=== PATIENT | male | born 1955 | race Native Hawaiian/Other Pacific Islander ===

== ENCOUNTER 2022-01-08 19:53 | Observation (INO) | payer OTHER ==
[~2022-01-08] VITALS: Ht 180.3 cm; Wt 81.6 kg
--- NOTE | ~2022-01-08 | EKG ---
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
[2022-01-08 20:02] VITALS: BP 99/53
[2022-01-08 21:17] LABS: ABSOLUTE LYMPHOCYTES 0.2 thou/uL (0.8-5.3); ABSOLUTE NEUTROPHILS 8.7 thou/uL (1.6-8.1); BASOPHILS 0.1 %; EOSINOPHILS 0.1 %; LYMPHOCYTES 2.1 %; MCH 25.8 pg (26.0-34.0); MCHC 31.7 g/dL (28.0-37.0); MCV 81.3 fL (80.0-100.0); MONOCYTES 18.1 %; MPV 7.6 fl. (7.2-11.1); NUCLEATED RBCS 0 /100WBC; PLATELET COUNT* 319 thou/uL (150-400); POLYS 79.6 %; RBC 2.34 mil/uL (4.50-6.00); RDW-CV 24.2 % (10.5-14.5); WBC 10.9 thou/uL (4.0-11.0)
[2022-01-08 21:22] LABS: CALCIUM 8.1 mg/dL (8.5-10.1); CREATININE 1.6 mg/dL (0.6-1.3); POTASSIUM 4.2 mmol/L (3.5-5.1)
[2022-01-08 21:26] LABS: HEMATOCRIT 19.1 % (42.0-52.0)
[2022-01-08 21:31] LABS: INR 1.1; PROTIME 11.5 Seconds (9.20-11.50)
[2022-01-08 21:32] LABS: TOTAL BILIRUBIN 0.8 mg/dL (<0.1-1.0); TOTAL PROTEIN 7.1 g/dL (6.4-8.2)
[2022-01-08 22:03] LABS: ANISOCYTOSIS 2+; HYPOCHROMASIA 1+; PLATELET ESTIMATE ADEQUATE
[2022-01-08 22:04] LABS: MACROCYTES Occasional; MICROCYTES Occasional
[2022-01-09 04:25] VITALS: BP 104/58
[2022-01-09 07:15] LABS: URINE BILIRUBIN NEGATIVE (Negative); URINE BLOOD TRACE (Negative); URINE CLARITY CLEAR; URINE COLOR YELLOW; URINE GLUCOSE-RANDOM NEGATIVE (Negative); URINE KETONES NEGATIVE (Negative); URINE LEUKOCYTES-REFLEX NEGATIVE (Negative); URINE NITRITE-REFLEX NEGATIVE (Negative); URINE PROTEIN NEGATIVE (Negative); URINE UROBILINOGEN 0.2 E.U./dl (0.2-1.0)
--- NOTE | 2022-01-09 08:40 | NUR ---
CALLED PT'S DAUGHTER BACK AND GAVE UP DATE OF PT'S CONDITION PER PT'S CONSENT. DAUGHTER EMANUEL [phone].
[2022-01-09 08:48] VITALS: BP 96/57
--- NOTE | 2022-01-09 09:15 | EKG ---
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
[2022-01-09 09:21] LABS: ABSOLUTE LYMPHOCYTES 1.1 thou/uL (0.8-5.3); ABSOLUTE MONOCYTES 1.3 thou/uL (0.0-1.2); ABSOLUTE NEUTROPHILS 8.8 thou/uL (1.6-8.1); BASOPHILS 0.3 %; EOSINOPHILS 0.3 %; HEMATOCRIT 26.2 % (42.0-52.0); LYMPHOCYTES 9.5 %; MCH 25.9 pg (26.0-34.0); MCHC 31.5 g/dL (28.0-37.0); MCV 82.2 fL (80.0-100.0); MONOCYTES 11.7 %; MPV 7.5 fl. (7.2-11.1); NUCLEATED RBCS 0 /100WBC; PLATELET COUNT* 295 thou/uL (150-400); POLYS 78.2 %; RBC 3.19 mil/uL (4.50-6.00); RDW-CV 22.6 % (10.5-14.5); WBC 11.2 thou/uL (4.0-11.0)
[2022-01-09 09:27] LABS: HEMOGLOBIN 8.3 gm/dL (14.0-18.0)
[2022-01-09 09:40] LABS: ANION GAP 10 mmol/L (7-16); BUN 19 mg/dL (7-18); CHLORIDE 97 mmol/L (98-107); CHOLESTEROL 93 mg/dL (<200); CO2 23 mmol/L (21-32); CREATININE 1.2 mg/dL (0.6-1.3); GLUCOSE 149 mg/dL (70-99); HDL CHOLESTEROL 41 mg/dL (>40); LDL CHOLESTEROL 42 mg/dL (<100); SERUM ASSESSMENT CLEAR; SODIUM 130 mmol/L (136-145); TC:HDL 2.3 Ratio (Not establshd); TRIGLYCERIDE 51 mg/dL (<150); VLDL 10 mg/dL (<40)
[2022-01-09 10:04] VITALS: BP 96/57
[2022-01-09 10:14] LABS: % SATURATION 4 % (20-39); IRON 11 ug/dL (50-175)
[2022-01-09 11:30] VITALS: BP 104/67
[2022-01-09] MEDS ORDERED: XARELTO20 MG PO (13:13)
[2022-01-09] MEDS ORDERED: PROTONIX40 M2 PO ×2 (13:14→13:37)
[2022-01-09] MEDS ORDERED: ONDANSETRON HCL4 M2 PO (13:16)
[2022-01-09] MEDS ORDERED: REMERON15 M2 PO (13:18)
[2022-01-09] MEDS ORDERED: LIPITOR10 MG PO ×2 (13:19→14:51)
[2022-01-09] MEDS ORDERED: BACLOFEN5 MG PO (13:21)
[2022-01-09] MEDS ORDERED: VITAMIN D3250 MC2 PO (13:23)
[2022-01-09] MEDS ORDERED: COLACE100 MG PO (13:24)
[2022-01-09] MEDS ORDERED: CIPROFLOXACIN500 M1 PO (13:25)
[2022-01-09] MEDS ORDERED: FERROUS SULFAT325 M2 PO (13:26)
[2022-01-09] MEDS ORDERED: NITROGLYCERIN0.4 MG SUBLING (13:28)
[2022-01-09] MEDS ORDERED: AMARYL2 M1 PO (13:28)
[2022-01-09] MEDS ORDERED: ACETAMINOPHEN325 M1 PO (13:31)
--- NOTE | 2022-01-09 14:13 | 2DMMODE ---
[place] [address] 2 D/M-MODE ECHOCARDIOGRAM Name: ORLANDO COTTER Room: [address] Merline Brown#: [id number] Admission: 01/09/22 Attend Phys: Katie Feldman, Discharge: Date of : 55 Date of Service: 01/09/22 1413 Report #: [id number] THIS REPORT FOR: cc: Physician not on staff Physician not on staff Jaodn Law MD [facility] ~ APPROVED REPORT Study performed: 01/09/2022 10:01:19 EXAM: Comprehensive 2D, Doppler, and color-flow Echocardiogram Patient Location: In-Patient Room #: er Status: routine BSA: 2.02 HR: 70 bpm BP: 109/60 mmHg Rhythm: NSR Other Information Study Quality: Good Indications Chest Pain 2D Dimensions IVSd: 11.14 (7-11mm) LVOT Diam: 23.05 (18-24mm) LVDd: 59.43 mm PWd: 9.26 (7-11mm) Ascending Ao: 35.44 (22-36mm) LVDs: 53.80 (25-40mm) Aortic Root: 35.58 mm Volumes Left Atrial Volume (Systole) LA ESV Index: 49.10 mL/m2 Aortic Valve AoV Peak Jean-Claude.: 0.88 m/s AO Peak Gr.: 3.10 mmHg LVOT Max P.59 mmHg AO Mean Gr.: 2.10 mmHg LVOT Mean P.75 mmHg LVOT Max V: 0.63 m/s AO V2 VTI: 22.22 cm LVOT Mean V: 0.40 m/s KEVIN (VTI): 2.84 cm2 LVOT V1 VTI: 15.13 [place] [address] 2 D/M-MODE ECHOCARDIOGRAM Name: PAVANZORAMIGUELANGELORLANDO Room: [address]Stephy#: [id number] Admission: 01/09/22 Attend Phys: Katie Feldman, Discharge: Date of : 55 Date of Service: 01/09/22 1413 Report #: [id number] Mitral Valve E/A Ratio: 1.16 MV Decel. Time: 163.68 ms MV E Max Jean-Claude.: 0.88 m/s MV PHT: 47.47 ms MVA (PHT): 4.63 cm2 TDI E/Lateral E': 8.80 E/Medial E': 14.67 Medial E' Jean-Claude.: 0.06 m/s Lateral E' Jean-Claude.: 0.10 m/s Pulmonary Valve PV Peak Jean-Claude.: 0.70 m/s PV Peak Gr.: 1.94 mmHg Left Ventricle Left ventricle is moderately dilated. There is global hypokinesis of the left ventricle. There is normal left ventricular wall thickness. Left ventricular systolic function is severely decreased. LVEF is 15-20%. The left ventricular diastolic function is normal. Right Ventricle The right ventricle is normal size. The right ventricular systolic function is normal. Atria Left atrium is severely dilated. The right atrium size is normal. Aortic Valve The aortic valve is normal in structure. Trace aortic regurgitation. There is no aortic valvular stenosis. Mitral Valve The mitral valve is normal in structure. Mild mitral regurgitation. No evidence of mitral valve stenosis. Tricuspid Valve The tricuspid valve is normal in structure. Unable to assess PA pressure. Trace tricuspid regurgitation. Pulmonic Valve The pulmonary valve is normal in structure. There is no pulmonic valvular regurgitation[place] [address] 2 D/M-MODE ECHOCARDIOGRAM Name: ORLANDO COTTER [address] [id number] Admission: 01/09/22 Attend Phys: Katie Feldman, Discharge: Date of : 55 Date of Service: 01/09/22 1413 Report #: [id number] The aortic root is normal in size. IVC is normal in size and collapses >50% with inspiration. Pericardium There is no pericardial effusion. <Conclusion> Left ventricle is moderately dilated. LVEF is 15-20%. Left atrium is severely dilated. Trace aortic regurgitation. Mild mitral regurgitation. <ELECTRONICALLY SIGNED> By: Jadon Law MD, FACC 01/09/221412 12 12 Jadon Law MD, FAC /INF
[2022-01-09] MEDS ORDERED: REGLAN 5 MG TAB5 MG PO (14:53)
[2022-01-09 16:00] VITALS: BP 98/64
[2022-01-09 17:08] VITALS: BP 98/64
--- NOTE | 2022-01-11 08:20 | CON ---
[address] [address] CONSULTATION Name: ORLANDO COTTER Room: [address] Merline Brown#: [id number] Admission: 01/09/22 Attend Phys: Katie Feldman MD Discharge: 01/09/22 Date of : 55 Report #: [id number] THIS REPORT FOR: cc: Physician not on staff Physician not on staff Jadon Law MD [facility] ~ DATE OF CONSULTATION: 01/09/2022 CARDIOLOGY CONSULTATION HISTORY OF PRESENT ILLNESS: The patient is a 66-year-old [place] male who I was asked to see in the hospital today after he complained of chest pain. Unfortunately, there are no old records available. The history is obtained from the patient. He has a long history of diabetes. He notes that years ago, he lived in [place]. Six years ago, he complained of shortness of breath, was found to have coronary artery disease and underwent triple vessel bypass surgery in [place]. He moved to the [facility] about 5 years ago. He is followed by gun numberer at [facility]. He apparently has never had a stress test or subsequent cardiac catheterization. However, he notes that since his bypass surgery, he has occasional chest pressure. It usually occurs when he lies down. It is not related to activity. There is no radiation of the pain. It can make him short of breath. He has taken nitroglycerin in the past. Because of the chest pressure while lying down, his gun numberer referred him to a GI doctor. He underwent upper endoscopy and was found to have gastric cancer. This past year, he has been receiving chemotherapy. He goes every week and receives an infusion through a port. Recently, the pressures have been worse. Yesterday, it occurred several times. He has taken nitroglycerin which seemed to help. He denies any fever or cough. He denied the pain being related to food. He has had no bleeding. Denied any belch with the episode. He has had no trauma to his chest. Denied any rash. He denies any edema. He does get short of breath with exertion. There are occasional episodes when his heart rate will increase, but he has had no syncope. PAST MEDICAL HISTORY: He has had previous cholecystectomy. He has a history of diabetes. CURRENT MEDICATIONS: Consist of a pill for his diabetes. He is on no pill for high cholesterol or high blood pressure. He does have a history of anemia and has required transfusion in the past. ALLERGIES: He has no known drug allergies. FAMILY HISTORY: Negative for heart disease. SOCIAL HISTORY: He is . He moved from [place] to [facility] [place] [address]. [place] [address] CONSULTATION Name: ORLANDO COTTER Room: [address] Merline Brown#: [id number] Admission: 01/09/22 Attend Phys: Katie Feldman MD Discharge: 01/09/22 Date of : 55 Report #: [id number] He used to work at [employer]. No smoking or alcohol abuse. REVIEW OF SYSTEMS: He has had no history of stroke, asthma, liver disease, kidney disease, chronic skin condition or psychiatric illness. PHYSICAL EXAMINATION: GENERAL: Revealed an elderly male, lying in bed, appeared in no acute distress. VITAL SIGNS: Blood pressure 100/60, pulse 70, he was afebrile. HEENT: He was anicteric. Conjunctivae pink. Mucous membranes moist. NECK: Veins do not distended. Neck is supple. CHEST: Clear to auscultation. HEART: Regular rate and rhythm without murmur, rub or gallop. ABDOMEN: Soft. EXTREMITIES: Had no pitting edema. Posterior tibial pulse 2+ bilaterally. SKIN: Cool and dry. NEUROLOGIC: Nonfocal. His ECG in the Emergency Room last night showed a sinus rhythm with nonspecific ST and T-wave changes. There was poor R-wave progression. Workup in the Emergency Room last night, he had a portable chest x-ray that showed cardiomegaly, small effusion, otherwise clear lung carter, some atelectasis. LABORATORY DATA: Creatinine 1.2, alkaline phosphatase is 370, albumin 2.0. High sensitivity troponin was only 54. BNP 10,276. LDL was only 42. TSH 0.6. Hemoglobin on admission was only 6. His COVID antigen stat test was negative. Urinalysis is negative for protein. IMPRESSION AND RECOMMENDATIONS: 1. Chest pressure. Atypical for angina and that occurs only when he lies down in bed at night. Suspect noncardiac. I would not recommend stress testing at this time. 2. Anemia. The patient received transfusion. 3. Gastric cancer. Currently receiving chemotherapy. 4. Diabetes. <ELECTRONICALLY SIGNED> By: Jadon Law MD, FACC 01/11/22 0820 1057 [id number] No Law MD, FAC /nt
== END 2022-01-09 17:50 | disposition home or self-care (01) ==
LOC: M.ERS 19:53 → M.TBA-ER 01-09 00:23 → M.ORTHSURG 01-09 11:21
PROVIDERS: Internal Medicine; Personal Emergency Response Attendant; ADMIT Internal Medicine; ATTEND Internal Medicine
DX: R07.89 Other chest pain (principal); Z20.822 Contact with and (suspected) exposure to COVID-19; I25.10 Atherosclerotic heart disease of native coronary artery without angina pectoris; I10 Essential (primary) hypertension; E78.5 Hyperlipidemia, unspecified; D50.0 Iron deficiency anemia secondary to blood loss (chronic); G47.00 Insomnia, unspecified; K21.9 Gastro-esophageal reflux disease without esophagitis; E11.43 Type 2 diabetes mellitus with diabetic autonomic (poly)neuropathy; K31.84 Gastroparesis; K59.00 Constipation, unspecified; Z98.890 Other specified postprocedural states; Z85.028 Personal history of other malignant neoplasm of stomach